=== PATIENT | female | born 1990 | race Two or more races ===

== ENCOUNTER 2017-06-13 17:39 | Emergency (ER) | payer SELFPAY ==
[~2017-06-13] VITALS: Ht 162.6 cm; Wt 65.8 kg
[2017-06-13 18:02] VITALS: BP 117/64
[2017-06-13 18:28] LABS: APPEARANCE,URINE CLEAR; BILIRUBIN, URINE NEGATIVE (NEGATIVE); COLOR,URINE PALE YELLOW; GLUCOSE, URINE (UA) NEGATIVE (NEGATIVE); KETONES,URINE NEGATIVE (NEGATIVE); LEUKOCYTE ESTERASE ,URINE NEGATIVE (NEGATIVE); NITRITE,URINE NEGATIVE (NEGATIVE); PH,URINE 6 (4.5-8.0); PROTEIN,URINE NEGATIVE (NEGATIVE); UROBILINOGEN,URINE NORMAL MG/DL (0.0-1.0)
[2017-06-13] MEDS ORDERED: Ketorolac 30mg Inj IV ONE (18:45)
[2017-06-13] MEDS ORDERED: cefTRIAXone 1 GM in NS 55 ML IVPB ONE (18:45)
[2017-06-13 18:54] LABS: BASOPHILS % (AUTO) 1.6 % (0.0-2.0); EOSINOPHILS % (AUTO) 1.5 % (0.0-3.0); HEMATOCRIT 39.5 % (37.0-47.0); HEMOGLOBIN 13.5 G/DL (12.0-16.0); MEAN CORPUSCULAR VOLUME 90 FL (80-99); NEUTROPHILS % (AUTO) 61.9 % (45.0-75.0); PLATELET COUNT 175 K/UL (150-450); RED BLOOD COUNT 4.37 M/UL (4.20-5.40); RED CELL DISTRIBUTION WIDTH 10.9 % (11.6-14.8); WHITE BLOOD COUNT 6.8 K/UL (4.8-10.8)
[2017-06-13 19:02] LABS: ANION GAP 12 mmol/L (5-15); BLOOD UREA NITROGEN 10 mg/dL (7-18); CALCIUM 9.3 MG/DL (8.5-10.1); CARBON DIOXIDE 28 MMOL/L (21-32); CHLORIDE 103 MMOL/L (98-107); CREATININE 0.8 MG/DL (0.55-1.30); POTASSIUM 3.5 MMOL/L (3.5-5.1); SODIUM 142 MMOL/L (136-145)
[2017-06-13 19:07] LABS: ALANINE AMINOTRANSFERASE 18 U/L (12-78); ALBUMIN 4.1 G/DL (3.4-5.0); ALBUMIN/GLOBULIN RATIO 1.1 (1.0-2.7); ALKALINE PHOSPHATASE 81 U/L (46-116); ASPARTATE AMINO TRANSFERASE 18 U/L (15-37); BILIRUBIN,TOTAL 0.2 MG/DL (0.2-1.0)
[2017-06-13 19:13] LABS: INR 1.1 (0.9-1.1)
[2017-06-13] MEDS ORDERED: IBUPROFEN600 MG ORAL (19:40)
[2017-06-13] MEDS ORDERED: Lidocaine 1% MPF 10mg/ml 5ml INJ ONE (20:15)
[2017-06-13] MEDS ORDERED: Ketorolac 60mg Inj IM ONE (20:15)
[2017-06-13 20:20] VITALS: BP 115/64
[2017-06-13 20:35] VITALS: BP 117/64
--- NOTE | 2017-06-14 12:52 | Diagnostic Imaging Report ---
Indication: Pain Technique: Transabdominal and endovaginal pelvic ultrasound was performed. Findings: Uterus measures 6.6 x 4.6 x 3.1 cm. Endometrial echocomplex measures 3.7 mm in thickness. No focal endometrial mass lesion appreciated. Doppler flow is noted within the bilateral ovaries. No evidence to suggest ovarian torsion at this time. Multiple follicles seen bilaterally. There is questionable hemorrhagic cyst in the left ovary there is trace free pelvic fluid. IMPRESSION: Endometrial thickness within normal limits. No discrete uterine lesion identified. Bilateral ovaries with multiple follicles. Question small hemorrhagic cyst of the left ovary. No evidence to suggest ovarian torsion at this time. Trace free fluid in the pelvis.
--- NOTE | 2017-06-16 14:13 | Emergency Room Report ---
History of Present Illness General Chief Complaint: Abdominal Pain Source: Patient Present Illness HPI Patient's 26-year-old female presented after increased abdominal pain. Patient gradual onset of symptoms. The patient was noted to have recent use of morning- after pill. Patient had increased bowel cramping. She reports having not been . She denies recent fever. Patient noted have increased bleeding. Allergies: Coded Allergies: No Known Allergies (Unverified , 06/13/17) Patient History Last Menstrual Period: 04/18/17 Reviewed Nursing Documentation: PMH: Agreed, PSxH: Agreed Nursing Documentation-PMH Past Medical History: No Stated History Review of Systems All Other Systems: negative except mentioned in HPI Physical Exam Vital Signs Date Time Temp Pulse Resp B/P (MAP) Pulse Ox O2 Delivery O2 Flow Rate FiO2 06/13/17 17:35 97.7 80 16 100/57 97 Room Air Sp02 EP Interpretation: reviewed, normal General Appearance: normal inspection, well appearing, no apparent distress, alert, GCS 15 Head: atraumatic ENT: normal ENT inspection, hearing grossly normal, normal voice Neck: normal inspection, full range of motion, supple, no bony tend Respiratory: normal inspection, lungs clear, normal breath sounds, no respiratory distress, no retraction, no wheezing Cardiovascular #1: regular rate, rhythm, no edema Gastrointestinal: normal inspection, normal bowel sounds, non tender, soft, no guarding, no hernia Genitourinary: no CVA tenderness Musculoskeletal: normal inspection, back normal, normal range of motion Neurologic: normal inspection, alert, oriented x3, responsive, designer III-XII nml as tested, speech normal Psychiatric: normal inspection, judgement/insight normal, mood/affect normal Skin: normal inspection, normal color, no rash Medical Decision Making Diagnostic Impression: Primary Impression: Menorrhagia ER Course Patient presented for abdominal pain. Differential diagnoses included ischemic bowel, appendicitis, perforated viscus, abdominal aortic aneurysm, inferior myocardial infarction, viral gastroenteritis Because of complexity of patient's case laboratory testing and imaging studies were ordered. Patient given IV fluids. She is given Toradol for pain. Pelvic exam showed a small amount of bleeding. Pelvic ultrasound minimal free fluid with no evidence of ovarian torsion. The patient is advised to follow up with primary care doctor in 1-2 days. Patient is advised to return if any worsening condition or if any changes in status that are concerning. This report is dictated with [employer] ethnographer software which may occasionally lead to discrepancies related to use of this software. Last Vital Signs Date Time Temp Pulse Resp B/P (MAP) Pulse Ox O2 Delivery O2 Flow Rate FiO2 06/13/17 20:35 97.7 69 22 117/64 100 Room Air Status: improved Disposition: HOME, SELF-CARE Condition: Stable Scripts Ibuprofen* (MOTRIN*) 600 Mg Tablet 600 MG ORAL Q8H Y for For Pain, #30 TAB 0 Refills Prov: Rosalino Bowman 06/13/17 Referrals: NOT CHOSEN IPA/,REFERRING (PCP) Patient Instructions: Abdominal Pain, Adult Rosalino Bowman Jun 16, 2017 14:13
== END 2017-06-13 20:35 | disposition home or self-care (01) ==
LOC: EDBD 17:39 → EMR 18:53
DX: N92.0 Excessive and frequent menstruation with regular cycle (principal); R10.9 Unspecified abdominal pain
CPT/HCPCS: 36415; 76856; 80053; 81001; 81025; 85025; 85610; 85730; 86900; 86901; 96372; 99283; J0696; J1885